=== PATIENT | male | born 1955 | race Caucasian/White ===

== ENCOUNTER 2017-02-10 16:17 | Emergency (ER) | payer OTHER ==
[2017-02-10 16:36] VITALS: BP 161/90
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
== END 2017-02-10 17:50 | disposition home or self-care (01) ==
LOC: JD.ED 16:17
DX: H92.02 Otalgia, left ear (principal); I10 Essential (primary) hypertension; K21.9 Gastro-esophageal reflux disease without esophagitis; E66.9 Obesity, unspecified; Z88.5 Allergy status to narcotic agent; Z79.82 Long term (current) use of aspirin; Z79.899 Other long term (current) drug therapy
CPT/HCPCS: 99283

== ENCOUNTER 2019-07-17 07:45 | Day surgery (SDC) | payer BC ==
[~2019-07-17 07:45] MED LIST: FLU Vacc QS2019-20(6MOS+)/PF 60 MCG/0.5 ML SYRINGE IM ONE; Lactated Ringers 1,000 ML IV SCH; Lidocaine 1% 4 ML ONE; Lidocaine 1%/Sod Bicarbonate in NS 8.4% 1 ML Syringe IDERM PRN; Midazolam 1 MG/ML 2 ML SDV ONE; Propofol 200 MG/20 ML SDV ONE; Sodium Chloride 0.9% 10 ML Syringe FLUSH PRN; fentaNYL 100 MCG/2 ML SDV ONE
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
[2019-07-17] MEDS ORDERED: Propofol 200 MG/20 ML SDV ONE ×2 (09:16→09:44)
--- NOTE | 2019-07-17 09:58 | PCM48HPAN ---
Post Anesthesia Note - EVALUATION WITHIN 48HRS OF ANESTHETIC Vital Signs in Normal Range: Yes Patient Participated in Evaluation: Yes Respiratory Function Stable: Yes Airway Patent: Yes Cardiovascular Function Stable: Yes Hydration Status Stable: Yes Pain Control Satisfactory: Yes Nausea and Vomiting Control Satisfactory: Yes Mental Status Recovered: Yes Vital Signs: Last Vital Signs Temp 97.9 F 07/17/19 07:55 Pulse 58 L 07/17/19 07:55 Resp 16 07/17/19 07:55 BP 164/83 H 07/17/19 07:55 Pulse Ox 98 07/17/19 07:55 111/82 16 55 95% 97.2
--- NOTE | 2019-07-17 10:01 | PCM.PRGIL ---
Lower GI Endoscopy Procedure Procedure:: Reports: Colonoscopy Intervention:: Biopsy Procedure Comments:: Two small subcentimeter sessile polyps removed with jumbo forceps near hepatic flexure. One small sessile polyp biopsied in descending colon. Performed By:: Tiago Chirinos Date of Service:: 07/17/19 Informed Consent Obtained?: Yes Indications:: Reports: Screening Rectodigital Exam:: Reports: Normal Exam, Normal Rectal Tone Sedation:: Reports: IV Depth Reached (Location):: Reports: Cecum Landmarks:: Reports: Ileocecal Valve - Findings Rectal:: Reports: Normal Hemorrhoids:: Reports: Internal Internal Hemorrhoid Grade (1,2,3,4):: 1 Hemorrhoids Comments:: seen on retroflexion Condyloma:: Reports: None Colitis (Location):: Reports: None Polyps (location):: Reports: Descending Colon, Ascending Colon Polyp Type:: Reports: Flat Mass (Location):: Reports: None (Extensive diverticulosis of sigmoid, with scattered diverticula throughout the length of the colon. ) Previous Colon Surgery (Location):: Reports: None Stenosis (Location):: Reports: None Complications:: Reports: None Cultures:: Reports: None - Follow-up Follow-Up:: as needed
[2019-07-17 10:43] VITALS: BP 139/80; PULSE 51
== END 2019-07-17 10:30 | disposition home or self-care (01) ==
LOC: JD.SDS 07:45
PROVIDERS: ATTEND Surgery
DX: Z12.11 Encounter for screening for malignant neoplasm of colon (principal); D12.4 Benign neoplasm of descending colon; D12.2 Benign neoplasm of ascending colon; K64.0 First degree hemorrhoids; K57.30 Diverticulosis of large intestine without perforation or abscess without bleeding; K21.9 Gastro-esophageal reflux disease without esophagitis; I10 Essential (primary) hypertension; F41.9 Anxiety disorder, unspecified; F32.9 Major depressive disorder, single episode, unspecified; M19.90 Unspecified osteoarthritis, unspecified site; N40.0 Benign prostatic hyperplasia without lower urinary tract symptoms; Z88.5 Allergy status to narcotic agent; Z87.891 Personal history of nicotine dependence; Z79.82 Long term (current) use of aspirin; Z79.899 Other long term (current) drug therapy
CPT/HCPCS: 45380; J2001; J2250; J2704; J3010; J7120; 00812

== ENCOUNTER 2024-10-28 06:53 | Day surgery (SDC) | payer MEDICARE, BC ==
[~2024-10-28 06:53] MED LIST changes: -FLU Vacc QS2019-20(6MOS+)/PF 60 MCG/0.5 ML SYRINGE IM ONE; -Lactated Ringers 1,000 ML IV SCH; -Lidocaine 1% 4 ML ONE; -Lidocaine 1%/Sod Bicarbonate in NS 8.4% 1 ML Syringe IDERM PRN; -Midazolam 1 MG/ML 2 ML SDV ONE; -Propofol 200 MG/20 ML SDV ONE; +Sodium Chloride 0.9% 10 ML Syringe FLUSH SCH; -fentaNYL 100 MCG/2 ML SDV ONE
[2024-10-28] MEDS: Lactated Ringers 1,000 ML IV SCH (07:20)
[2024-10-28] MEDS ORDERED: Lidocaine 1% 4 ML ONE (08:18)
[2024-10-28] MEDS ORDERED: Propofol 200 MG/20 ML SDV ONE (08:18)
[2024-10-28 11:24] VITALS: BP 136/89; PULSE 64
== END 2024-10-28 09:28 | disposition home or self-care (01) ==
LOC: JD.SDS 06:53
PROVIDERS: ATTEND Surgery
DX: Z12.11 Encounter for screening for malignant neoplasm of colon (principal); K57.30 Diverticulosis of large intestine without perforation or abscess without bleeding; D12.6 Benign neoplasm of colon, unspecified; K21.9 Gastro-esophageal reflux disease without esophagitis; I10 Essential (primary) hypertension; E78.5 Hyperlipidemia, unspecified; F32.9 Major depressive disorder, single episode, unspecified; Z79.82 Long term (current) use of aspirin; Z79.899 Other long term (current) drug therapy; Z88.5 Allergy status to narcotic agent
CPT/HCPCS: 45385; J2704; J7120; 00811; J3490

== ENCOUNTER 2024-12-25 07:49 | Day surgery (SDC) | payer MEDICARE, BC ==
[~2024-12-25 07:49] MED LIST changes: +Lidocaine 2% 5 ML SDV ONE; +propofoL 500 MG/50 ML 50 ML ONE
[2024-12-25] MEDS: Lactated Ringers 1,000 ML IV SCH (08:00)
[2024-12-25 10:58] VITALS: BP 122/80; PULSE 70
== END 2024-12-25 10:00 | disposition home or self-care (01) ==
LOC: JD.SDS 07:49
PROVIDERS: ATTEND Surgery
DX: C15.9 Malignant neoplasm of esophagus, unspecified (principal); K29.50 Unspecified chronic gastritis without bleeding; K44.9 Diaphragmatic hernia without obstruction or gangrene; K21.00 Gastro-esophageal reflux disease with esophagitis, without bleeding; I10 Essential (primary) hypertension; E66.9 Obesity, unspecified; Z88.5 Allergy status to narcotic agent; Z79.82 Long term (current) use of aspirin; Z68.41 Body mass index [BMI] 40.0-44.9, adult; Z86.16 Personal history of COVID-19; Z79.899 Other long term (current) drug therapy
CPT/HCPCS: 43239; J2003; J2704; J7120; 00731

== ENCOUNTER 2025-09-03 10:03 | Emergency (ER) | payer MEDICARE, BC ==
[2025-09-03] MEDS ORDERED: Sodium Chloride 0.9% 10 ML Syringe FLUSH PRN (11:04)
[2025-09-03 11:25] LABS: BASOPHILS ABSOLUTE AUTO 0.1 K/mm3 (0.0-0.2); BASOPHILS PERCENT AUTO 0.5 % (0.0-1.0); EOSINOPHILS ABSOLUTE AUTO 0.2 K/mm3 (0.0-0.4); EOSINOPHILS PERCENT AUTO 1.4 % (0.0-6.0); IMMATURE GRAN ABSOLUTE AUTO 0.08 K/mm3 (0.00-0.05); IMMATURE GRAN PERCENT AUTO 0.7 % (0.0-0.4); LYMPHOCYTES ABSOLUTE AUTO 1.1 K/mm3 (1.0-4.8); LYMPHOCYTES PERCENT AUTO 9.2 % (24.0-44.0); MEAN PLATELET VOLUME 9.9 fl (9.4-12.4); MONOCYTES ABSOLUTE AUTO 1.1 K/mm3 (0.0-0.8); MONOCYTES PERCENT AUTO 9.4 % (0.0-8.0); NEUTROPHILS ABSOLUTE AUTO 9.0 K/mm3 (1.8-7.7); NEUTROPHILS PERCENT AUTO 78.8 % (41.0-71.0); NRBC ABSOLUTE 0.00 (0.00-0.02); NRBC PERCENT 0.0 % (0.0-0.2); PLATELET COUNT,PLT 298 K/mm3 (150-400); RED BLOOD CELL COUNT 2.93 M/mm3 (4.52-5.90); WHITE BLOOD CELL COUNT,WBC 11.37 K/mm3 (3.9-11.3)
[2025-09-03 11:35] LABS: A/G RATIO 0.5 (1-2); ALANINE AMINOTRANSFERASE,ALT 75.0 U/L (16-63); ASPARTATE AMNIOTRANSFERASE,AST 39.0 U/L (15-37); BILIRUBIN TOTAL 0.6 mg/dL (0.2-1.0); BLOOD UREA NITROGEN,BUN 31.0 mg/dL (7-18); CARBON DIOXIDE,CO2 26.0 mEq/L (21-32); CHLORIDE,CL 102.0 mEq/L (98-107); CREATININE 1.0 mg/dL (0.7-1.3); EST CRCL DRUG DOSING (CG) 62.91 mL/min; ESTIMATED GFR 81.0 mL/min (>60); GLUCOSE RANDOM 103.0 mg/dL (70-99); POTASSIUM,K 4.4 mEq/L (3.5-5.1); PROTEIN TOTAL,TP 6.5 g/dl (6.4-8.2); SODIUM,NA 138.0 mEq/L (136-145); TROPONIN I HIGH SENSITIVITY 34.0 pg/mL (<=76)
[2025-09-03] MEDS: Iopamidol 755 Mg/ML 100 ML Bottle IVPUSH ONE (11:59)
[2025-09-03] MEDS: Sodium Chloride 0.9% 10 ML Syringe FLUSH ONE (11:59)
[2025-09-03 12:38] LABS: APPEARANCE,URINE CLOUDY (Clear); GLUCOSE,URINE NEGATIVE (Negative); OCCULT BLOOD,URINE TRACE-INTACT (Negative)
[2025-09-03 13:37] LABS: EPITHELIAL CELLS,URINE 0-5 /hpf (0-5)
[2025-09-03] MEDS: cefTRIAXone 2 GM in Water For Injection, Sterile 20 ML IVPUSH ONE (15:16)
[2025-09-03] MEDS: Diatrizoate Meglumine/Diatrizoate Sodium 37% 120 ML Bottle PO ONE (15:48)
[2025-09-03] MEDS: guaiFENesin 100 MG/5 ML Soln 10 ML UD Cup PO ONE (22:35)
[2025-09-04 05:48] LABS: BASOPHILS ABSOLUTE AUTO 0.1 K/mm3 (0.0-0.2); BASOPHILS PERCENT AUTO 0.6 % (0.0-1.0); EOSINOPHILS ABSOLUTE AUTO 0.2 K/mm3 (0.0-0.4); EOSINOPHILS PERCENT AUTO 1.9 % (0.0-6.0); IMMATURE GRAN ABSOLUTE AUTO 0.07 K/mm3 (0.00-0.05); IMMATURE GRAN PERCENT AUTO 0.8 % (0.0-0.4); LYMPHOCYTES ABSOLUTE AUTO 1.0 K/mm3 (1.0-4.8); LYMPHOCYTES PERCENT AUTO 12.1 % (24.0-44.0); MEAN PLATELET VOLUME 9.7 fl (9.4-12.4); MONOCYTES ABSOLUTE AUTO 1.4 K/mm3 (0.0-0.8); MONOCYTES PERCENT AUTO 16.0 % (0.0-8.0); NEUTROPHILS ABSOLUTE AUTO 5.9 K/mm3 (1.8-7.7); NEUTROPHILS PERCENT AUTO 68.6 % (41.0-71.0); NRBC ABSOLUTE 0.00 (0.00-0.02); NRBC PERCENT 0.0 % (0.0-0.2); PLATELET COUNT,PLT 226 K/mm3 (150-400); RED BLOOD CELL COUNT 3.09 M/mm3 (4.52-5.90); WHITE BLOOD CELL COUNT,WBC 8.58 K/mm3 (3.9-11.3)
[2025-09-04 05:58] LABS: A/G RATIO 0.5 (1-2); ALANINE AMINOTRANSFERASE,ALT 58.0 U/L (16-63); ASPARTATE AMNIOTRANSFERASE,AST 31.0 U/L (15-37); BILIRUBIN TOTAL 0.7 mg/dL (0.2-1.0); BLOOD UREA NITROGEN,BUN 28.0 mg/dL (7-18); CARBON DIOXIDE,CO2 26.0 mEq/L (21-32); CHLORIDE,CL 102.0 mEq/L (98-107); CREATININE 0.9 mg/dL (0.7-1.3); EST CRCL DRUG DOSING (CG) 69.9 mL/min; ESTIMATED GFR 92.0 mL/min (>60); GLUCOSE RANDOM 94.0 mg/dL (70-99); POTASSIUM,K 4.4 mEq/L (3.5-5.1); PROTEIN TOTAL,TP 6.0 g/dl (6.4-8.2); SODIUM,NA 136.0 mEq/L (136-145)
[2025-09-04 12:56] VITALS: BP 137/74; PULSE 90
== END 2025-09-04 11:00 ==
LOC: JD.ED 10:03
DX: N39.0 Urinary tract infection, site not specified (principal); K92.2 Gastrointestinal hemorrhage, unspecified; D64.9 Anemia, unspecified; I10 Essential (primary) hypertension; E66.9 Obesity, unspecified; E78.00 Pure hypercholesterolemia, unspecified; K21.9 Gastro-esophageal reflux disease without esophagitis; M19.90 Unspecified osteoarthritis, unspecified site; Z79.899 Other long term (current) drug therapy; Z88.5 Allergy status to narcotic agent; Z90.49 Acquired absence of other specified parts of digestive tract; Z68.39 Body mass index [BMI] 39.0-39.9, adult
CPT/HCPCS: 36415; 36430; 71046; 71250; 71275; 74176; 80053; 81001; 82272; 83690; 84484; 85025; 85379; 86140; 86850; 86900; 86901; 86922; 87040; 87086; 87088; 87186; 87428; 93005; 96361; 96365; 96366; 96375; 96376; 99285; A4216; A9270; J0696; J2470; J7030; P9016; Q9963; Q9967; 93010; J1171